=== PATIENT | female | born 2000 | race Asian ===

== ENCOUNTER 2024-10-20 02:41 | Emergency (ER) | payer BC ==
[~2024-10-20] VITALS: Ht 165.1 cm; Wt 82.0 kg
[2024-10-20 02:53] VITALS: O2SAT 98
[2024-10-20] MEDS ORDERED: TRIMO EACHEYE (03:30)
[2024-10-20] MEDS: TETRACAINE 0.5% OPHTH DROPS 4ML RIGHTEYE ONE (03:50)
[2024-10-20] MEDS: FLUORESCEIN SODIUM 1MG/STRIP LEFTEYE ONE (03:50)
[2024-10-20 03:53] VITALS: BP 112/77; PULSE 64; RESP 16; TEMP 36.6; O2SAT 99
== END 2024-10-20 03:55 | disposition home or self-care (01) ==
LOC: ER 02:41
DX: H57.89 Other specified disorders of eye and adnexa (principal); Z98.890 Other specified postprocedural states
CPT/HCPCS: 99283